=== PATIENT | male | born 1950 | race Caucasian/White ===

== ENCOUNTER 2017-08-28 08:08 | Emergency (ER) | payer OTHER ==
[~2017-08-28] VITALS: Ht 177.8 cm; Wt 82.0 kg
[2017-08-28 08:14] VITALS: BP 151/72
[2017-08-28] MEDS ORDERED: AZIT250T PO (09:49)
[2017-08-28] MEDS ORDERED: diphenhydrAMINE 25 MG/10 ML UD oral solution PO ONE (09:50)
[2017-08-28] MEDS ORDERED: azithromycin 250mg tablet PO ONE (09:50)
[2017-08-28] MEDS ORDERED: dexamethasone 4mg tablet PO ONE (09:50)
== END 2017-08-28 11:02 | disposition home or self-care (01) ==
LOC: ER 08:09
DX: J02.0 Streptococcal pharyngitis (principal); E78.00 Pure hypercholesterolemia, unspecified; I10 Essential (primary) hypertension; E11.9 Type 2 diabetes mellitus without complications; Z87.891 Personal history of nicotine dependence; Z98.890 Other specified postprocedural states
CPT/HCPCS: 71046; 87081; 99285; J8540; Q0163